=== PATIENT | female | born 1990 | race Caucasian/White ===

== ENCOUNTER 2017-01-02 10:54 | Emergency (ER) | payer OTHER ==
[~2017-01-02] VITALS: Ht 162.6 cm; Wt 90.7 kg
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
--- NOTE | ~2017-01-02 | CT71 ---
[facility] A Service of [facility] RADIOLOGY TEXT RESULTS PATIENT: MAGDIEL VEGA LOCATION: [facility] : [birth year] UNIT #: [id number] AGE: [address]: Amilcar Thompson DO SEX: F ORDER DR: [id number] [facility] [address] [place], [place] [address] [id number] E MR#: [id number] Acc #: [id number] NAME: MAGDIEL VEGA. : 1990 SEX: F STUDY DATE/TIME: 01/02/2017 12:26 UNIT: [facility] ROOM: STUDY DESCRIPTION: CT Head Wo Contrast Attending Physician: Amilcar Thompson D.O. Ordering Physician: Amilcar Thompson D.O. Primary Care Physician: Dawna Quintero M.D. MEDICAL IMAGING REPORT This report is preliminary unless electronic signature is present EXAM CT head. INDICATIONS Trauma. Left-sided head pain. Dizziness and headache. TECHNIQUE CT head without contrast. Axial noncontrast images were obtained from the skull base to the vertex. This CT exam was performed with one or more of the following radiation dose reduction techniques: automatic exposure control, adjustment of mA and/or kV according to patient size, and iterative reconstruction. COMPARISON CT head 04/08/2015. FINDINGS Ventricular size and configuration are normal. There is no evidence of acute infarct or hemorrhage. There are no extraaxial fluid collections. No mass lesion or mass effect is seen. There are no skull fractures. IMPRESSION Normal noncontrast head CT. Dictated by... Roldan Warren M.D. THIS IS AN ELECTRONICALLY VERIFIED REPORT Roldan Warren M.D. at 01/03/2017 11:48 AM RPC/reji TD: 01/03/2017 11:35 [facility] A Service of [facility] RADIOLOGY TEXT RESULTS PATIENT: MAGDIEL VEGA LOCATION: [facility] : 90 UNIT #: [id number] AGE: [address]: Amilcar Thompson DO SEX: F ORDER DR: JOB #: [id number] MEDICAL IMAGING REPORT Page 1 of 1 COPY
== END 2017-01-02 15:16 | disposition home or self-care (01) ==
LOC: CED 10:54
DX: S06.0X9A Concussion with loss of consciousness of unspecified duration, initial encounter (principal); W22.8XXA Striking against or struck by other objects, initial encounter
CPT/HCPCS: 70150; 70450; 84703; 99284